=== PATIENT | male | born 1960 | race American Indian/Alaskan Native ===

== ENCOUNTER 2017-10-20 15:25 | Observation (INO) | payer MEDICAID ==
[2017-10-20 15:25] VITALS: BMI 31.2
--- NOTE | 2017-10-20 15:57 | C.PDOC ---
History Of Present Illness NEW ONSET NUMBNESS L HAND SINCE 0400. PS AWOKE FEELING "LIKE HAND WAS ASLEEP" WORST L THUMB AND INDEX FINGER, PART OF PALM. PS TROUBLE HOLDING OBJECTS W HAND. CURRENT SX IMPROVED BUT PERSIST. HO INSOMNIA, LAST FELT NORMAL @ 0200. DENIES ARM NUMB/WEAKNESS. DENIES OTHER ASSOC WEAK/NUMB, PRIOR HO CVA/TIA. + HEROIN ABUSE. EXAM NAD HEENT PERRLA NEURO SEE NIH GAIT WNL PSYCH CALM COOPERATIVE NO ACUTE INTOX, ACTIVE PSYCHOSIS REMAINDER NEG Time Seen by Provider: 10/20/17 15:47 Chief Complaint (Nursing): Weakness/Neurological Deficit History Per: Patient History/Exam Limitations: no limitations Onset/Duration Of Symptoms: Hrs Current Symptoms Are (Timing): Still Present Severity: Moderate Past Medical History Reviewed: Historical Data, Nursing Documentation, Vital Signs Vital Signs: Last Vital Signs Temp 97.7 F 10/20/17 15:35 Pulse 55 L 10/20/17 16:53 Resp 16 10/20/17 16:53 BP 138/87 10/20/17 16:53 Pulse Ox 95 10/20/17 18:24 - Medical History PMH: HTN, Hypothyroidism, Post Traumatic Stress Disorder Denies: Depression Surgical History: No Surg Hx - [facility] Procedures INJECT/INFUSE NEC (02/15/14) Family History: States: No Known Family Hx - Social History Hx Tobacco Use: Yes Hx Alcohol Use: No Hx Substance Use: Yes (heroin inh) - Immunization History Hx Tetanus Toxoid Vaccination: No Hx Influenza Vaccination: No Hx Pneumococcal Vaccination: No Review Of Systems Except As Marked, All Systems Reviewed And Found Negative. Constitutional: Negative for: Fever, Chills Neurological: Positive for: Numbness (numbness in left hand, worst in left thumb and index finger, part of palm, denies numbness in arm), Other. Negative for: Weakness (weakness in arm), Dizziness Physical Exam - Physical Exam Appears: Non-toxic, No Acute Distress Skin: Normal Color, Warm, No Rash Head: Atraumatic, Normacephalic Eye(s): bilateral: Normal Inspection, PERRL, EOMI Oral Mucosa: Moist Neck: Normal, Normal ROM, Supple Respiratory: Normal Breath Sounds Extremity: Normal ROM, No Swelling Neurological/Psych: Oriented x3, Normal Speech, Other (See NIH. Calm, cooperative, no acute intox, active pyschosis) Gait: Steady ED Course And Treatment - Laboratory Results Result Diagrams: 10/20/17 16:16 10/20/17 16:16 ECG: Interpreted By Me, Viewed By Me ECG Rhythm: Sinus Bradycardia ECG Interpretation: No Acute Changes Rate From EC (BPM) O2 Sat by Pulse Oximetry: 95 (RA) Pulse Ox Interpretation: Normal - Other Rad CXR X-Ray: Viewed By Me, Read By Radiologist Interpretation: PROCEDURE: CHEST RADIOGRAPH, 1 VIEW. HISTORY: Left hand numbness. COMPARISON: None available. FINDINGS: LUNGS: The lungs are clear. PLEURA: No pneumothorax or pleural fluid seen. CARDIOVASCULAR: Normal. OSSEOUS STRUCTURES: No significant abnormalities. VISUALIZED UPPER ABDOMEN: Normal. OTHER FINDINGS: None. IMPRESSION: No acute findings. - CT Scan/US CT - Head Other Rad Studies (CT/US): Read By Radiologist, Radiology Report Reviewed CT/US Interpretation: PROCEDURE: CT HEAD WITHOUT CONTRAST. HISTORY: Left hand numbness. COMPARISON: None available. TECHNIQUE: Axial computed tomography images were obtained through the head/brain without intravenous contrast. Radiation dose: Total exam DLP = 940.92 mGy-cm. This CT exam was performed using one or more of the following dose reduction techniques: Automated exposure control, adjustment of the mA and/or kV according to patient size, and/or use of iterative reconstruction technique. FINDINGS: HEMORRHAGE: No intracranial hemorrhage. BRAIN: Sanchez-white matter differentiation is preserved. There is no mass, mass effect or abnormal extra-axial fluid collection. VENTRICLES: The ventricles are normal in size, shape and configuration. CALVARIUM: The skull base and calvarium are normal. PARANASAL SINUSES: There is chronic left maxillary sinusitis and mild scattered ethmoid and frontal sinusitis. MASTOID AIR CELLS: Predominantly clear. OTHER FINDINGS : None. IMPRESSION: No acute intracranial abnormality. If there is a persistent focal neurologic deficit and an ongoing clinical concern for acute infarction, an MRI of the brain without intravenous contrast would be a more sensitive modality for evaluation of hyperacute/acute ischemic infarction. Chronic left maxillary sinusitis. NIHSS Stroke Scale - Date/Time Evaluation Performed Date Performed: 10/20/17 Time Performed: 15:57 When Was NIHSS Performed: Baseline - How Severe is the Stroke Level of Consciousness: 0=Alert LOC to Questions: 0=Both comments correct LOC to commands: 0=Obeys both correctly Best Gaze: 0=Normal Visual: 0=No visual loss Facial: 0=Normal Motor Arm - Left: 0=No drift Motor Arm - Right: 0=No drift Motor Leg - Left: 0=No drift Motor Leg - Right: 0=No drift Limb Ataxia: 0=Absent Sensory: 1=Mild to moderate loss Best Language: 0=No aphasia Dysarthia: 0=Normal articulation Extinction & Inattention (Neglect): 0=Normal, no object Score: 1 NIHSS Stroke Scale 2 - Date/Time Evaluation Performed Date Performed: 10/20/17 Time Performed: 17:17 When Was NIHSS Performed: Re-evaluation - How Severe is the Stroke Level of Consciousness: 0=Alert LOC to Questions: 0=Both comments correct LOC to commands: 0=Obeys both correctly Best Gaze: 0=Normal Visual: 0=No visual loss Facial: 0=Normal Motor Arm - Left: 0=No drift Motor Arm - Right: 0=No drift Motor Leg - Left: 0=No drift Motor Leg - Right: 0=No drift Limb Ataxia: 0=Absent Sensory: 1=Mild to moderate loss Best Language: 0=No aphasia Dysarthia: 0=Normal articulation Extinction & Inattention (Neglect): 0=Normal, no object Score: 1 Progress - Re-Evaluation Re-evaluation Note: 10/20/17 17:17 EXAM UNCH PRIOR. VSS. 10/20/17 17:18 D/W DR AHUMADA AWARE OF FINDINGS WILL ADMIT - Data Reviewed Data Reviewed: Lab, Diagnostic imaging, EKG, Old records rTPA Inclusion/Exclusion - Refusal of Treatment Patient Refused Treatment: No - Inclusion Criteria for Altepase Patient is 18 years or Older: Yes The Clinical Diagnosis of Ischemic Stroke That is Causing a Potentially Disabling Neurological Deficit: No Time of Onset is Well Established to be Less Than 270 Minute Before Treatment Would Begin: No Risk/Benefit Discussed With Patient/Family Member Present: No - Exclusion Criteria for Altepase Uncontrolled Hypertension at Time of Treatment (Systolic BP above 185 or Diastolic BP above 110 mmHg): No Active Internal Bleeding: No Known Bleeding Diathesis Including but Not Limited to: Platelets Below 100,000/ mm,PTT Above 40 sec After Heparin Use, Current Use of Oral Anitcoagulant With INR Greater Than 1.7 or PT Greater Than 15 secs: No Evidence of an Intracranial Hemorrhage: No Evidence of Major Acute Infarct With Signs Greater Than 1/3 MCA Territory: No Suspicion of Subarachnoid Hemorrhage on Pretreatment Evaluation Even if CT Head Negative For Hemorrhage: No - Warning to TPA With Conditions Following Conditions Weighed Against Anticipated Benefit: Yes Condition: Stroke Serevity Too Mild, Care Team Unable to Determine Eligibilty Medical Decision Making Medical Decision Making: Plan: --Labs --Urine Drug Screen --Head CT W/O Contrast Disposition Counseled Patient/Family Regarding: Diagnosis - Disposition Disposition: HOSPITALIZED Disposition Time: 17:18 Condition: STABLE - POA Present On Arrival: None - Clinical Impression Clinical Impression: TIA (transient ischemic attack), Paresthesia, Drug abuse - Scribe Statement The provider has reviewed the documentation as recorded by the Adelso Saleh Provider Attestation: All medical record entries made by the Adelso were at my direction and personally dictated by me. I have reviewed the chart and agree that the record accurately reflects my personal performance of the history, physical exam, medical decision making, and the department course for this patient. I have also personally directed, reviewed, and agree with the discharge instructions and disposition. Decision To Admit - Pt Status Changed To: Hospital Disposition Of: Observation - . Bed Request Type: Telemetry Admitting Physician: Rosalba Ahumada Patient Diagnosis: TIA (transient ischemic attack), Paresthesia, Drug abuse
[2017-10-20 16:20] LABS: BASO # 0.1 K/uL (0.0-0.2); BASO % 1.3 % (0.0-2.0); EOS # 0.1 K/uL (0.0-0.7); EOS % 3.3 % (0.0-4.0); LYMPH # 1.7 K/uL (1.0-4.3); LYMPH % 39.5 % (20.0-40.0); MEAN CELL VOLUME 86.7 fL (80.0-94.0); MEAN CORPUSCULAR HEMOGLOBIN 29.9 pg (27.0-31.0); MEAN CORPUSCULAR HGB CONC 34.4 g/dL (33.0-37.0); MEAN PLATELET VOLUME 8.4 fL (7.2-11.7); MONO # 0.3 K/uL (0.0-0.8); MONO % 6.9 % (0.0-10.0); NRBC % 0.1 % (0.0-2.0); RED CELL DISTRIBUTION WIDTH 14.6 % (11.5-14.5); WHITE BLOOD COUNT 4.2 K/uL (4.8-10.8)
[2017-10-20 16:34] LABS: BLOOD UREA NITROGEN 7 mg/dL (9-20); CARBON DIOXIDE 33 mmol/L (22-30); CHLORIDE 99 mmol/L (98-107); GFR AFRICAN-AMERICAN > 60; GLUCOSE,RANDOM 110 mg/dL (75-110); POTASSIUM 3.6 mmol/L (3.6-5.2); SODIUM 137 mmol/L (132-148)
--- NOTE | 2017-10-20 16:43 | RAD ---
PROCEDURE: CHEST RADIOGRAPH, 1 VIEW HISTORY: Left hand numbness COMPARISON: None available. FINDINGS: LUNGS: The lungs are clear. PLEURA: No pneumothorax or pleural fluid seen. CARDIOVASCULAR: Normal. OSSEOUS STRUCTURES: No significant abnormalities. VISUALIZED UPPER ABDOMEN: Normal. OTHER FINDINGS: None. IMPRESSION: No acute findings.
--- NOTE | 2017-10-20 17:02 | CT ---
PROCEDURE: CT HEAD WITHOUT CONTRAST. HISTORY: Left hand numbness COMPARISON: None available. TECHNIQUE: Axial computed tomography images were obtained through the head/brain without intravenous contrast. Radiation dose: Total exam DLP = 940.92 mGy-cm. This CT exam was performed using one or more of the following dose reduction techniques: Automated exposure control, adjustment of the mA and/or kV according to patient size, and/or use of iterative reconstruction technique. FINDINGS: HEMORRHAGE: No intracranial hemorrhage. BRAIN: Sanchez-white matter differentiation is preserved. There is no mass, mass effect or abnormal extra-axial fluid collection. VENTRICLES: The ventricles are normal in size, shape and configuration. CALVARIUM: The skull base and calvarium are normal. PARANASAL SINUSES: There is chronic left maxillary sinusitis and mild scattered ethmoid and frontal sinusitis. MASTOID AIR CELLS: Predominantly clear. OTHER FINDINGS: None. IMPRESSION: No acute intracranial abnormality. If there is a persistent focal neurologic deficit and an ongoing clinical concern for acute infarction, an MRI of the brain without intravenous contrast would be a more sensitive modality for evaluation of hyperacute/acute ischemic infarction. Chronic left maxillary sinusitis.
[2017-10-20 19:55] VITALS: RESP 20
[2017-10-20 22:28] LABS: CHOLESTEROL 169 mg/dL (0-199)
[2017-10-21] MEDS ORDERED: Levothyroxine 175 MCG TAB PO SCH (06:30)
[2017-10-21 08:54] VITALS: TEMP 97.8; O2SAT 94
[2017-10-21] MEDS ORDERED: Enoxaparin 40 mg Syringe SC SCH (10:00)
[2017-10-21 10:13] VITALS: BP 129/70
[2017-10-21 13:19] VITALS: PULSE 44
--- NOTE | 2017-10-22 01:07 | CON ---
NEUROLOGY CONSULTATION REASON FOR CONSULTATION: Left hand numbness. HISTORY OF PRESENT ILLNESS: The patient is a 57-year-old male, who has been asked for evaluation of left hand numbness. Per the patient, when he woke up yesterday morning, he felt numbness in the left hand, which is described as weakness in his left hand. He is able to do more stuff in the right than the left. He denies having any weakness in his legs. Denies any difficulty with speech or vision. REVIEW OF SYSTEMS: Denies any headache, dizziness, chest pain, shortness of breath, abdominal pain, constipation, diarrhea, dysuria, cough, or sputum production. PAST MEDICAL HISTORY: Includes hypothyroidism, hypertension. MEDICATION AT HOME: Include aspirin, levothyroxine, Lasix, and atenolol. ALLERGIES: NO KNOWN DRUG ALLERGIES. SOCIAL HISTORY: He does smoke cigarettes, denies use of alcohol, does do cocaine. FAMILY HISTORY: Reviewed and noncontributory to the case. PHYSICAL EXAMINATION: GENERAL: Patient is a middle-aged male, sitting on the bed, in no acute distress. VITAL SIGNS: Blood pressure is 129/70, heart rate is 47 per minute, breathing at the rate of 16 per minute, temperature 97.8 degree Fahrenheit. HEENT: Head normocephalic and atraumatic. NECK: Supple. There are no carotid bruits. LUNGS: Clear. CARDIOVASCULAR SYSTEM: S1 and S2 audible. No murmurs. ABDOMEN: Soft and nontender. Bowel sounds are present. NEUROLOGIC: Mental status: Patient is awake and alert; oriented to time, place and person. Speech is fluent. Naming and repetition are normal. Memory and cognition are intact. Cranial nerve examination: Pupils are 3 mm bilaterally, reactive to light. Visual lala are full. Extraocular movements are intact. There is no facial asymmetry. Palate is upgoing bilaterally and tongue is midline. Motor examination: Tone is normal. There is weakness of the wrist extension of the left side. Extension of the forearm is 5/5. Flexion of the hand is normal. Power in all three other extremities is 5/5. Reflexes are 1+ and symmetrical. Plantars are downgoing bilaterally. Cerebellar examination: [id number] shows no dysmetria. Gait is narrow based. Romberg is negative. LABORATORY DATA: Reviewed, shows WBC 4.2, hemoglobin 13.4, hematocrit of 39.0, and platelets of 186. INR is 1.0. Sodium 137, potassium 3.6, chloride 99, carbon dioxide content of 33, BUN of 7, creatinine 0.9, and glucose of 116. Urine toxicology is positive for opiates and benzodiazepine. 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 RECOMMENDATION: 1. Patient will have a wrist splint. 2. Patient will require occupational therapy as outpatient. 3. Patient may need electromyography or nerve conduction study as outpatient. 4. Patient is neurologically stable for discharge with outpatient followup. Thank you for the opportunity to participate in the care of this patient. Sara Roland MD
--- NOTE | 2017-10-23 07:59 | HP ---
HISTORY OF PRESENT ILLNESS: Mr. Drummond is admitted to the hospital with chief complaint of numbness and weakness of the hand. Patient woke up as a generalized with this episode. Patient has a history of alcoholism and drinking, and abusing drugs. PHYSICAL EXAMINATION: GENERAL: The patient is awake, alert, oriented. VITAL SIGNS: Temperature 98, pulse 90. HEENT: Within normal limits. NECK: Supple. CHEST: Symmetrical. HEART: Regular. ABDOMEN: Soft. EXTREMITIES: No edema. ASSESSMENT: Weakness. Patient needs bed rest, neuro check, Neurology evaluation, MRI of the brain. Rosalba Murillo MD
--- NOTE | 2017-10-23 12:14 | CARD ---
APPROVED REPORT EKG Measurement Heart [id number] NM [id number] [id number] <Conclusion> Sinus bradycardia Right axis deviation Nonspecific ST and T wave abnormality Abnormal ECG
== END 2017-10-21 16:18 | disposition home or self-care (01) ==
LOC: C.ER 15:25 → C.9E 17:20 → C.6T 18:36
PROVIDERS: ADMIT Internal Medicine Pulmonary Disease; ATTEND Internal Medicine Pulmonary Disease
DX: R53.1 Weakness (principal); G47.00 Insomnia, unspecified; M21.339 Wrist drop, unspecified wrist; F17.210 Nicotine dependence, cigarettes, uncomplicated; E03.9 Hypothyroidism, unspecified; F43.10 Post-traumatic stress disorder, unspecified
CPT/HCPCS: 36415; 70450; 71010; 80048; 80061; 80324; 80345; 80346; 80349; 80353; 80358; 80361; 82948; 83992; 84378; 84484; 85025; 85610; 85730; 99285; G0378; J1650